=== PATIENT | female | born 1955 | race Caucasian/White ===

== ENCOUNTER 2018-12-18 11:29 | Outpatient (CLI) | payer OTHER ==
[2018-12-18 12:49] VITALS: BP 125/86
== END 2018-12-18 12:02 | disposition home or self-care (01) ==
LOC: ORTHO 11:29
PROVIDERS: ATTEND Orthopaedic Surgery
DX: S92.511D Displaced fracture of proximal phalanx of right lesser toe(s), subsequent encounter for fracture with routine healing (principal); M85.88 Other specified disorders of bone density and structure, other site; F17.210 Nicotine dependence, cigarettes, uncomplicated; X58.XXXD Exposure to other specified factors, subsequent encounter
CPT/HCPCS: 73660; G0463

== ENCOUNTER 2025-03-30 08:08 | Day surgery (SDC) | payer MEDICARE, OTHER ==
[2025-03-30] VITALS (9 sets, daily range): BP systolic 104–132; BP diastolic 38–87; PULSE 61–81; RESP 16–24; TEMP 98.9; O2SAT 95–98
[~2025-03-30] VITALS: Ht 162.6 cm; Wt 72.1 kg
[~2025-03-30 08:08] MED LIST: NO HOME MEDS; ringers solution, lacted 1,000 ML IV SCH
[2025-03-30] MEDS ORDERED: LIDOcaine 2% (20mg/ml) 5ml vial ONE (09:17)
[2025-03-30] MEDS ORDERED: midazolam 1 mg/ML 2ml injection ONE (10:29)
[2025-03-30] MEDS ORDERED: fentaNYL/PF 50MCG/1 ML 2ML syringe ONE (10:29)
[2025-03-30] MEDS ORDERED: propofol inj 20 ML IV ONE (10:30)
== END 2025-03-30 12:09 | disposition home or self-care (01) ==
LOC: GI LAB 08:08
PROVIDERS: ATTEND Internal Medicine Gastroenterology
DX: Z12.11 Encounter for screening for malignant neoplasm of colon (principal); D12.3 Benign neoplasm of transverse colon; D12.4 Benign neoplasm of descending colon; D12.2 Benign neoplasm of ascending colon; K64.8 Other hemorrhoids; K57.30 Diverticulosis of large intestine without perforation or abscess without bleeding; Z98.49 Cataract extraction status, unspecified eye; Z98.890 Other specified postprocedural states; Z79.899 Other long term (current) drug therapy
CPT/HCPCS: 45385; 82948; A4618; A4620; C1889; J2003; J2250; J2704; J3010; J7040; J7120; Z7512; Z7610